=== PATIENT | male | born 1985 | race African-American/Black ===

== ENCOUNTER 2021-10-30 17:28 | Emergency (ER) | payer MEDICAID ==
[~2021-10-30] VITALS: Ht 182.9 cm; Wt 102.1 kg
--- NOTE | 2021-10-30 17:30 | NUR ---
Pt to bed 5 for evaluation.
--- NOTE | 2021-10-30 17:45 | NUR ---
PT CALLED 911 FROM BATHROOM TELLING OFFICERS THAT HE WANTS TO SWALLOW SOMETHING SHARP. OFFICERS CALLED [employer] AND I SPOKE WITH THEM, GIVING ALL INFORMATION ASKED. AWAITING ARRIVAL OF SAI NG
--- NOTE | 2021-10-30 17:46 | NUR ---
Patient removed from bathroom, pending Field Evidence Technician arrival at this time.
--- NOTE | 2021-10-30 17:53 | NUR ---
CLAIRE NG SPEAKING WITH PT.
--- NOTE | 2021-10-30 18:05 | NUR ---
Portable CXR ompleted at bedside.
--- NOTE | 2021-10-30 18:15 | NUR ---
DR PEREZ SPEAKING WITH 2 OFFICERS
--- NOTE | 2021-10-30 18:22 | NUR ---
Officers speaking with patient
--- NOTE | 2021-10-30 18:23 | NUR ---
Patient in room, calm in no acute distress, denies suicidal ideation, denies hearing voices.
[2021-10-30] MEDS ORDERED: HYDR-3917 PO (18:25)
[2021-10-30] MEDS ORDERED: ARIP10TA9 PO (18:25)
--- NOTE | 2021-10-30 18:30 | NUR ---
PT STATES THAT HE ALWAYS KEEPS A RAZOR IN HIS MOUTH LIKE TUPAC, PT STATES HE WAS NOT GOING TO SWALLOW IT. PT DENIES ANY SUICIDAL IDEATIONS OR HOMOCIDAL IDEATIONS. PT COOPERATIVE WITH STAFF.
--- NOTE | 2021-10-30 18:31 | NUR ---
Security remains near patient for safety precautions
[2021-10-30 18:35] VITALS: BP_SYST 129
--- NOTE | 2021-10-30 18:36 | NUR ---
Patient given written and verbal discharge instructions and verbalizes understanding. ER MD discussed with patient the results and treatment provided. Patient in stable condition. ID arm band removed. Rx of Abibriseida and [place] given. Patient educated on pain management and to follow up with PMD. Opportunity for questions provided and answered. Medication side effect fact sheet provided.
== END 2021-10-30 18:35 | disposition home or self-care (01) ==
LOC: SED 17:28
DX: F29 Unspecified psychosis not due to a substance or known physiological condition (principal); Z79.899 Other long term (current) drug therapy
CPT/HCPCS: 74018; 99283

== ENCOUNTER 2021-10-31 04:27 | Emergency (ER) | payer MEDICAID ==
[~2021-10-31] VITALS: Ht 180.3 cm; Wt 104.3 kg
[~2021-10-31 04:27] MED LIST: ARIP10TA9 PO; HYDR-3917 PO
[2021-10-31 04:31] VITALS: BP_SYST 123
--- NOTE | 2021-10-31 04:35 | NUR ---
36 YR OLD MALE WITH COMPLAINT OF MEDICAL EVALUATION REQUEST. PT STATES "I FEEL WIERD". PT IS AMBULATORY AND DENIES DIFFICULTY BREATHING. UNABLE TO GET TRUE BLOOD PRESSURE BECAUSE PT IS CONSTANTLY MOVING. PT PLACED IN ROOM 5
--- NOTE | 2021-10-31 04:40 | NUR ---
Patient ambulatory to bed 5 for evaluation
--- NOTE | 2021-10-31 06:02 | NUR ---
Pt was asked to provide urine sample, pt agreed to provide but then continued sleeping. States he will do it "in a bit"
--- NOTE | 2021-10-31 06:20 | NUR ---
Pt refused blood draw.
--- NOTE | 2021-10-31 06:31 | NUR ---
Patient given written and verbal discharge instructions. Opportunity for questions provided and answered.
[2021-10-31 07:12] LABS: BARBITURATE, URINE NEGATIVE (NEG <=200); BENZODIAZEPINE, URINE NEGATIVE (NEG <=150); CANNABINOID, URINE POSITIVE (NEG <=50); COCAINE, URINE NEGATIVE (NEG <=150); METHAMPHETAMINES SCREEN,URINE POSITIVE (NEG <=500); OPIATE, URINE NEGATIVE (NEG <=100); PHENCYCLIDINE SCREEN,URINE NEGATIVE (NEG <=25); UR TRICYCLIC ANTIDEPRESSANTS NEGATIVE (NEG <=300); URINE AMPHETAMINE POSITIVE (NEG <=500); URINE METHADONE NEGATIVE (NEG <=200); URINE OXYCODONE SCREEN NEGATIVE (NEG <=100); URINE PROPOXYPHENE SCREEN NEGATIVE (NEG <=300)
== END 2021-10-31 06:30 | disposition home or self-care (01) ==
LOC: SED 04:27
DX: R41.82 Altered mental status, unspecified (principal); F12.929 Cannabis use, unspecified with intoxication, unspecified; F15.929 Other stimulant use, unspecified with intoxication, unspecified; Z79.899 Other long term (current) drug therapy
CPT/HCPCS: 80307; 99283